=== PATIENT | male | born 1985 ===

== ENCOUNTER → 2018-11-18 | Outpatient (CLI) | payer SELFPAY ==
[~2018-11-18] MED LIST: CEPH500 PO; HYDACE5 PO; IBUP800 PO; OTC SINUS MEDS; SULTRIDS PO
[2018-11-18 12:33] LABS: BASOPHILS ABSOLUTE AUTO 0.03 K/mm3 (0.00-0.23); BASOPHILS PERCENT AUTO 1 % (0-2); EOSINOPHILS ABSOLUTE AUTO 0.07 K/mm3 (0.00-0.68); EOSINOPHILS PERCENT AUTO 1 % (0-6); Hematocrit 48.4 % (37.0-53.0); Hemoglobin 16.6 g/dL (13.5-17.5); IMMATURE GRAN ABSOLUTE AUTO 0.01 K/mm3 (0.00-0.10); IMMATURE GRAN PERCENT AUTO 0 % (0-1); LYMPHOCYTES ABSOLUTE AUTO 0.64 K/mm3 (0.84-5.20); LYMPHOCYTES PERCENT AUTO 10 % (21-46); MONOCYTES ABSOLUTE AUTO 0.66 K/mm3 (0.16-1.47); MONOCYTES PERCENT AUTO 11 % (4-13); Mean Corpuscular HGB 31.6 pg (26.0-34.0); Mean Corpuscular HGB Conc 34.3 g/dL (31.5-36.5); Mean Corpuscular Volume 92 fL (80-100); NEUTROPHILS ABSOLUTE AUTO 4.84 K/mm3 (1.96-9.15); NEUTROPHILS PERCENT AUTO 77 % (41-73); Platelet Count 177 K/mm3 (150-400); RDW Coefficient Variation 12.6 % (11.7-14.2); RDW Standard Deviation 42.7 fL (35.1-46.3); Red Blood Cell Count 5.25 M/mm3 (4.30-5.90); White Blood Cell Count 6.25 K/mm3 (4.00-11.30)
[2018-11-18 12:54] LABS: Alanine Aminotransfer (ALT/SGP 34 U/L (12-78); Albumin, Blood 4.4 g/dL (3.4-5.0); Albumin/Globulin Ratio 1.2 (0.8-1.8); Alk Phos 127 U/L (40-126); Anion Gap 11 mmol/L (6-16); Aspartate Aminotrans (AST/SGOT 28 U/L (12-37); Bilirubin, Total 0.8 mg/dL (0.1-1.0); Blood Urea Nitrogen 10 mg/dL (8-24); Bun/Creatinine Ratio 9.2 (12.0-20.0); CO2, Blood 28 mmol/L (21-32); Calcium, Blood 9.3 mg/dL (8.5-10.1); Chloride, Blood 102 mmol/L (98-108); Creatinine, Blood 1.09 mg/dL (0.60-1.20); Free Thyroxine 0.97 ng/dL (0.70-1.60); Globulin, Blood 3.8 g/dL (2.2-4.0); Glomerular Filtration Rate >60 (60-); Glucose, Blood 86 mg/dL (70-99); Potassium, Blood 3.9 mmol/L (3.5-5.5); Sodium, Blood 141 mmol/L (136-145); Total Protein, Blood 8.2 g/dL (6.4-8.2)
== END | disposition home or self-care (01) ==
LOC: LAB EV 12:27 → LAB SHORT 12:27
PROVIDERS: General Practice
DX: F41.8 Other specified anxiety disorders (principal); R07.0 Pain in throat
CPT/HCPCS: 80053; 84439; 84443; 85025; 87070

== ENCOUNTER 2019-08-29 20:32 | Emergency (ER) | payer SELFPAY ==
[~2019-08-29] VITALS: Ht 175.3 cm; Wt 63.5 kg
[2019-08-29] MEDS ORDERED: Augmentin 875-1 EACH PO (20:55)
== END 2019-08-29 21:10 | disposition home or self-care (01) ==
LOC: ER 20:32
DX: S01.512A Laceration without foreign body of oral cavity, initial encounter (principal); W22.8XXA Striking against or struck by other objects, initial encounter; Z79.891 Long term (current) use of opiate analgesic; Z79.899 Other long term (current) drug therapy
CPT/HCPCS: 99282; A9270

== ENCOUNTER 2022-03-19 07:27 | Day surgery (SDC) | payer OTHER ==
[~2022-03-19] VITALS: Ht 175.3 cm; Wt 60.0 kg
[~2022-03-19 07:27] MED LIST changes: +Augmentin 875-1 EACH PO
[2022-03-19] MEDS ORDERED: Celexa20 MG PO (08:09)
--- NOTE | 2022-03-19 11:09 | NUR ---
03/19/22 1109 OSMAN GUAN PT DEVELOPED [place] RIGHT BEFORE DC-ORDERRECIEVED FOR SUBLINGUAL ZOFRAN [address]MG DR MCKINNEY
== END 2022-03-19 11:17 | disposition home or self-care (01) ==
LOC: ORSCSDS 07:27
PROVIDERS: Surgery
PROC: 0JB50ZZ Excision of Left Neck Subcutaneous Tissue and Fascia, Open Approach (ICD-10-PCS; principal; 2022-03-19 08:30)
DX: L72.0 Epidermal cyst (principal); F17.210 Nicotine dependence, cigarettes, uncomplicated; F41.8 Other specified anxiety disorders; Z79.899 Other long term (current) drug therapy
CPT/HCPCS: 88304; A9270; J0690; J2250; J2704; J2795; J3010; J7120